=== PATIENT | male | born 1980 | race Caucasian/White ===

== ENCOUNTER 2017-10-07 11:41 | Emergency (ER) | payer BC, SELFPAY ==
[2017-10-07 12:18] VITALS: BMI 27.9
[2017-10-07 12:42] VITALS: BP 142/82; PULSE 97; RESP 18; TEMP 37.1; O2SAT 97; BMI 27.9
[2017-10-07 12:54] LABS: UTC Influenza A Antigen Negative (Negative); UTC Influenza B Antigen Negative (Negative)
--- NOTE | 2017-10-07 13:13 | HMH.EDUTC ---
[facility] [place] Disposition Clinical Impression: Influenza-like illness, Exposure to influenza Disposition: Home, Self-Care Condition on Discharge: Good Instructions: DI for Influenza -- Adult Additional Instructions: * Start Tamiflu today if you are going to take it. Discussed risks, side effects, risk of allergic reaction, and possible benefits. We even discussed hallucinations and uncontrollable fevers. still wants tamiflu. Encouraged to monitor closely.. * Lots of rest * Increase fluids, water, gatorade, powerade, pedialyte if /toddler/child * Monitor Temp. Tylenol every 4 hours as needed no more then 5 times a day or 4000mg in 24 hours and/or ibuprofen every 6 hours as needed no more then 3200mg in 24 hours (as long as your primary care doctor has told you that it is ok to take both) for fever/aches/pain. ER if fever no less than 101 despite tylenol and Ibuprofen * OTC cold/flu/sinus medication is ok but pick one. Do not take multiple different ones as they have similar ingredients and you can overdose on cold medication. * You (or your child) are contagious until no fever, aches, chills x 24 hours without medication for symptoms. Prescriptions: Oseltamivir Phosphate [Tamiflu 75mg Capsule] 75 mg PO BID #10 cap Referrals: Marciano Mckenzie MD [Primary Care Provider] - (Follow up IMMEDIATELY for new or worsening symptoms, improvement followed by suddenly feeling worse OR no noticeable improvement over the next 72 hours. 911 for difficulty breathing ) Forms: Work/School Release Time of Disposition: 13:16 Medical Decision Making - [place] Inquiry Pt receiving controlled substance: No Vital Signs: 10/07/17 12:42 Temperature 98.8 F Temperature Source Temporal Artery Scan Pulse Rate [Brachial] 97 H Respiratory Rate 18 Blood Pressure [Right Arm] 142/82 Blood Pressure Mean [Right Arm] 102 Blood Pressure Position [Right Arm] Sitting 02 Sat by Pulse Oximetry 97 Oxygen Delivery Method Room Air - Lab Data Lab results reviewed: Yes: I reviewed the patient's lab results. Lab Results 10/07/17 12:19: Influenza Type A Ag Negative, Influenza Type B Ag Negative [facility] [place] HPI - General Stated complaint: poss flu Time Seen by Provider: 10/07/17 13:14 Mode of Arrival: Ambulatory Source of Information: Patient Limitations: No Limitations Description of Symptoms (Recalled from Triage Doc. by RN): BODY ACHES AND FEVER SINCE LAST NIGHT. BOTH SONS DX WITH FLU A. HEENT Symptoms (Recalled from RN notes): Yes Resp Symptoms (Recalled from RN notes): No Skin Symptoms (Recalled from RN notes): No MS Symptoms (Recalled from RN notes): No Functional Status (Recalled from RN notes): NA - History of Present Illness Provider Complaint: c/o not feeling well since waking up this morning. Gradually feeling worse as day has progressed. Both sons dx w/ flu A, one yesterday and one today. Hasn't taken or tried anything for symptoms. - Related Data Previous Rx's Medication Instructions Recorded Oseltamivir Phosphate [Tamiflu 75 mg PO BID #10 cap 10/07/17 75mg Capsule] Allergies Allergy/AdvReac Type Severity Reaction Status Date / Time NO KNOWN ALLERGIES Allergy Uncoded 07/02/17 14:40 - Worker's Comp Is this a Worker's Comp case?: No [facility] History I have reviewed the patient's past medical history: Yes Medical History: Denies:: Diabetes Mellitus Type 1, Diabetes Mellitus Type 2, Hypertension Other Surgeries: Yes: Hernia Repair - Social History Alcohol Intake: never - Psychiatric History Expresses thoughts of harming self/others: None Suicide Plan Description: No Plan ROS Obtained: Yes Systems reviewed as appropriate & no additional complaints - Constitutional Constitutional: Reports body ache, Reports chills, Denies difficulty sleeping, Reports fatigue, Reports poor appetite - Eyes Eyes: Denies eye discharge, Denies itchy eyes - ENT Ears, Nose, Mouth, and Throat: Denies difficulty swallowing, Denies otalgia,
--- NOTE | 2017-10-07 13:16 | ED_ITS ---
[facility] [place] Disposition Clinical Impression: Influenza-like illness, Exposure to influenza Disposition: Home, Self-Care Condition on Discharge: Good Instructions: DI for Influenza -- Adult Additional Instructions: * Start Tamiflu today if you are going to take it. Discussed risks, side effects , risk of allergic reaction, and possible benefits. We even discussed hallucinations and uncontrollable fevers. still wants tamiflu. Encouraged to monitor closely.. * Lots of rest * Increase fluids, water, gatorade, powerade, pedialyte if infant/toddler/child * Monitor Temp. Tylenol every 4 hours as needed no more then 5 times a day or 4000mg in 24 hours and/or ibuprofen every 6 hours as needed no more then 3200mg in 24 hours (as long as your primary care doctor has told you that it is ok to take both) for fever/aches/pain. ER if fever no less than 101 despite tylenol and Ibuprofen * OTC cold/flu/sinus medication is ok but pick one. Do not take multiple different ones as they have similar ingredients and you can overdose on cold medication. * You (or your child) are contagious until no fever, aches, chills x 24 hours without medication for symptoms. Prescriptions: Oseltamivir Phosphate [Tamiflu 75mg Capsule] 75 mg PO BID #10 cap Referrals: Marciano Mckenzie MD [Primary Care Provider] - (Follow up IMMEDIATELY for new or worsening symptoms, improvement followed by suddenly feeling worse OR no noticeable improvement over the next 72 hours. 911 for difficulty breathing ) Forms: Work/School Release Time of Disposition: 13:16 Medical Decision Making - [place] Inquiry Pt receiving controlled substance: No Vital Signs: 10/07/17 12:42 Temperature 98.8 F Temperature Source Temporal Artery Scan Pulse Rate [Brachial] 97 H Respiratory Rate 18 Blood Pressure [Right Arm] 142/82 Blood Pressure Mean [Right Arm] 102 Blood Pressure Position [Right Arm] Sitting 02 Sat by Pulse Oximetry 97 Oxygen Delivery Method Room Air - Lab Data Lab results reviewed: Yes: I reviewed the patient's lab results. Lab Results 10/07/17 12:19: Influenza Type A Ag Negative, Influenza Type B Ag Negative [facility] [place] HPI - General Stated complaint: poss flu Time Seen by Provider: 10/07/17 13:14 Mode of Arrival: Ambulatory Source of Information: Patient Limitations: No Limitations Description of Symptoms (Recalled from Triage Doc. by RN): BODY ACHES AND FEVER SINCE LAST NIGHT. BOTH SONS DX WITH FLU A. HEENT Symptoms (Recalled from RN notes): Yes Resp Symptoms (Recalled from RN notes): No Skin Symptoms (Recalled from RN notes): No MS Symptoms (Recalled from RN notes): No Functional Status (Recalled from RN notes): NA - History of Present Illness Provider Complaint: c/o not feeling well since waking up this morning. Gradually feeling worse as day has progressed. Both sons dx w/ flu A, one yesterday and one today. Hasn't taken or tried anything for symptoms. - Related Data Previous Rx's Medication Instructions Recorded Oseltamivir Phosphate [Tamiflu 75 mg PO BID #10 cap 10/07/17 75mg Capsule] Allergies Allergy/AdvReac Type Severity Reaction Status Date / Time NO KNOWN ALLERGIES Allergy Uncoded 07/02/17 14:40 - Worker's Comp Is this a Worker's Comp case?: No [facility] History I have reviewed the patient's past medical history: Yes Medical History: Denies:: Diabetes Mellitus Type 1, Diabetes Mellitus Ty
[2017-10-07 13:21] VITALS: BP 142/82; PULSE 97; RESP 18; TEMP 37.1; O2SAT 97
== END 2017-10-07 13:22 | disposition home or self-care (01) ==
PROVIDERS: Emergency Provider Nurse Practitioner Family; Family Provider Internal Medicine Adolescent Medicine; PCP Internal Medicine Adolescent Medicine
DX: J11.1 Influenza due to unidentified influenza virus with other respiratory manifestations (principal)
CPT/HCPCS: 87804; 99201

== ENCOUNTER → 2019-07-02 09:50 | Outpatient (CLI) | payer OTHER, SELFPAY ==
--- NOTE | 2019-07-02 09:56 | MR_ITS ---
PROCEDURE: MR ANKLE RT WO CON CLINICAL INDICATION: RIGHT ANKLE PAIN, SEVERE SPRAIN Medial ankle pain following injury COMPARISON: No exams were available for comparison TECHNIQUE: Routine multiplanar multi echo sequences are performed without gadolinium enhancement. FINDINGS: There is heterogeneous increased T2 signal involving the distal and medial aspect of the talus suggesting underlying bone bruise. There is also slight increased T2 signal of the neck of the talus inferiorly. Mild subchondral increased T2 signal involves the distal aspect of the calcaneus superiorly and laterally lateral to the anterior subtalar joint. The tibiofibular ligaments appear intact. There is ill definition with increased T2 signal of the ATFL consistent with sprain or partial tear. The PT FL appears intact. Small amount fluid is present within the peroneal longus and brevis tendon sheath. There is also some bone marrow edema of the posterior talus medially at the posterior subtalar joint. Small amount fluid is present in the tibialis posterior and flexor hallucis longus tendon sheath. No obvious tendon tear is. The Achilles tendon is intact. The anterior extensor tendons appear intact. IMPRESSION: 1. Bone marrow edema of the talus and calcaneus as described above consistent with contusions of both the anterior and posterior talus and the anterior and medial aspect of the calcaneus. Edema also noted in the talar neck which could be due to underlying contusion or inflammation. No obvious fracture. Please correlate with recent radiographs which are not available at this institution. 2. Partial tear versus sprain of the ATFL. 3. Fluid within the peroneal, posterior tibial, and flexor hallucis longus sheath suggesting tendonitis Dictated by: Yosi Low MD 07/05/2019 11:37 Electronically signed by Yosi Low MD in [place] 07/05/2019 11:37
== END ==
PROVIDERS: PCP Internal Medicine Adolescent Medicine; Visit Provider Physician Assistant
DX: M25.571 Pain in right ankle and joints of right foot
CPT/HCPCS: 73721

== ENCOUNTER → 2023-02-28 11:18 | Outpatient (CLI) | payer SELFPAY ==
[2023-02-28 12:57] LABS: Hemoglobin A1C 5.5 % (4.0-6.0)
== END ==
LOC: LAB 11:22
PROVIDERS: PCP Internal Medicine Adolescent Medicine; Visit Provider Nurse Practitioner
DX: R80.9 Proteinuria, unspecified (principal); R82.4 Acetonuria
CPT/HCPCS: 36415; 83036

== ENCOUNTER 2024-07-01 10:45 | Outpatient (CLI) | payer MEDICAID, SELFPAY ==
[2024-07-01 18:37] LABS: Hematocrit 52.7 % (42.0-52.0); Hemoglobin 17.5 g/dL (14.1-18.0); Mean Corpuscular HGB Conc 33.2 g/dL (31.8-35.4); Mean Corpuscular Hemoglobin 29.1 pg (27.0-31.2); Mean Corpuscular Volume 87.5 fl (80-94); Red Blood Count 6.02 M/mm3 (4.60-6.20); Red Cell Distribution Width 13.9 % (11.5-17.5); White Blood Count 4.5 K/mm3 (4.8-10.8)
[2024-07-01 18:38] LABS: Basophils % 0.9 % (0.1-2.0); Eosinophils # 0.1 K/mm3 (0.0-0.4); Eosinophils % 1.3 % (0.1-12.0); Lymphocytes # 1.2 K/mm3 (0.7-4.5); Lymphocytes % 26.2 % (10-50); Mean Platelet Volume 12.6 fl (7.4-10.4); Monocytes # 0.5 K/mm3 (0.1-1.0); Monocytes % 11.6 % (1.7-9.3); Neutrophils # 2.7 K/mm3 (1.8-7.8); Neutrophils % 59.8 % (37.0-80.0); Platelet Count 179 K/mm3 (142-424)
[2024-07-01 18:48] LABS: Alanine Aminotransferase 56 U/L (12-78); Albumin Level 4.4 g/dl (3.5-5.0); Albumin/Globulin Ratio 1.8 (1.1-1.8); Alkaline Phosphatase 72 U/L (38-126); Aspartate Amino Transferase 55 U/L (17-59); Bilirubin,Total 0.5 mg/dl (0.2-1.3); Blood Urea Nitrogen 13 mg/dl (9-20); Calcium 9.5 mg/dl (8.4-10.2); Carbon Dioxide 29 mmol/L (22.0-30.0); Chloride 103 mmol/L (98-107); Chol/HDL Ratio 3.7 (1-3.5); Cholesterol 131 mg/dl (140-200); Estimated Glomerular Filt Rate 93 ml/min (>60); GFR (African American) 112 ML/MIN (>60); Globulin 2.5 g/dL (1.3-3.2); Glucose 89 mg/dl (74-100); HDL Cholesterol 35 mg/dl (40-60); Sodium 140 mmol/L (136-145); Total Protein,Serum 6.9 g/dl (6.3-8.2); Triglycerides 75 mg/dl (30-150); VLDL Cholesterol 15 mg/dL (0-40)
[2024-07-01 18:59] LABS: Direct LDL Cholesterol 79.97 mg/dL (100-129)
[2024-07-01 19:04] LABS: 25-OH Vitamin D, Total 29.9 ng/mL (30-100)
[2024-07-01 19:22] LABS: Anion Gap 12.4 mEq/L (5-15); Potassium 4.4 mmoL/L (3.5-5.1)
[2024-07-01 22:11] LABS: HIV Combo NEGATIVE (Negative)
[2024-07-01 23:11] LABS: Hemoglobin A1C 5.5 % (4.0-6.0)
[2024-07-03 10:24] LABS: HCV Ab Non Reactive (Non Reactive)
[2024-07-07 08:12] LABS: Testosterone, Total, LC/MS 300.1 ng/dL (264.0-916.0)
== END 2024-07-01 23:59 | disposition home or self-care (01) ==
LOC: LAB.DROPOF 07-02 10:10
PROVIDERS: PCP Family Medicine; Visit Provider Family Medicine
DX: E55.9 Vitamin D deficiency, unspecified (principal); R63.4 Abnormal weight loss; Z11.4 Encounter for screening for human immunodeficiency virus [HIV]; Z11.59 Encounter for screening for other viral diseases
CPT/HCPCS: 84402; 84403; 80053; 80061; 82306; 83036; 85025; 86803; 87389